=== PATIENT | female | born 1945 ===

== ENCOUNTER 2017-01-26 09:00 | Day surgery (SDC) | payer MEDICARE ==
[2017-01-06 11:21] VITALS: RESP 18; BMI 32.1
[2017-01-26] MEDS ORDERED: Lidocaine 2% MPF (5 ml) Inj ONE (09:33)
[2017-01-26] MEDS ORDERED: Acetylcholine 1% Opth System Pack IO ONE (09:33)
[2017-01-26] MEDS ORDERED: EPINEPHrine 1 mg/ml (1:1000) Inj ONE (09:34)
[2017-01-26] MEDS ORDERED: Chondroitin/Hyaluronate Opth Syringe KIT (0.55 ml-0.5 ml) IO ONE (09:34)
[2017-01-26] MEDS ORDERED: Phenylephrine 2.5% Opht Soln OD ONE ×2 (09:49→10:00)
[2017-01-26] MEDS ORDERED: Tropicamide 1% Opht 150 DROP/15 ML OD ONE (10:00)
[2017-01-26] MEDS ORDERED: Flurbiprofen 0.3% Opht SOLN OD SCH (10:00)
[2017-01-26] MEDS ORDERED: Tropicamide 1% Opht 150 DROP/15 ML OD SCH (10:00)
[2017-01-26] MEDS ORDERED: Flurbiprofen 0.3% Opht SOLN OD ONE (10:00)
[2017-01-26] MEDS ORDERED: Midazolam 2 MG/2 ML VIAL ONE (11:28)
[2017-01-26] MEDS ORDERED: Lactated Ringer's 1,000 ML IV ONE (11:30)
[2017-01-26] MEDS ORDERED: Tetracaine 0.5% Ophth 2 ML BOTTLE OU ONE (11:30)
[2017-01-26] MEDS ORDERED: Lidocaine 1% 20 MG/2 ML PF AMP EP ONE (11:50)
[2017-01-26] MEDS ORDERED: BSS 15 ML SOL IR ONE (11:50)
[2017-01-26] MEDS ORDERED: Maxitrol Opht Susp OD ONE (12:05)
[2017-01-26] MEDS ORDERED: PILOCARPINE 4% OD ONE (12:05)
[2017-01-26 13:56] VITALS: BP 122/67; PULSE 68; TEMP 97.6; O2SAT 100
--- NOTE | 2017-01-27 07:16 | OP ---
SURGEON: OLIVIA JUSTICE MD ANESTHESIOLOGIST: VICKY CID MD ANESTHESIA: LOCAL / IV SEDATION PREOPERATIVE DIAGNOSIS: ENTROPION OF THE RIGHT LOWER LID POSTOPERATIVE DIAGNOSIS: ENTROPION OF THE RIGHT LOWER LID. OPERATION: MODIFIED AHSAN PROCEDURE OF THE RIGHT LOWER LID. 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 PREPARATION AND PROCEDURE: After the patient was prepped and draped in the usual manner for a sterile ophthalmic surgery 2% Xylocaine with Epinephrine was injected at the lateral canthal region of the right lower lid. Mini-curved hemostats were employed to crimp the lower lid in a curvilinear fashion at the right lower lateral canthal region. After crimping of the tissues for approximately two minutes both the outer temporal and medial aspects of crimped tissue were excised in a full thickness fashion of the lower lid. The tarsal plate was re-anastomosed using #5-0 Mersilene suture.The lid margins were re- anastomosed using #6-0 silk suture.The skin surface was closed in an interrupted fashion using #7-0 silk and the skin in an interrupted fashion.This terminated the procedure. Maxitrol ointment was applied to the suture line and inside the lower lid. POSTOPERATIVE CONDITION: The patient was brought to the post anesthesia with stable vital signs. OLIVIA JUSTICE MD [facility]
== END 2017-01-26 14:30 | disposition home or self-care (01) ==
LOC: H.OPSURG 09:00
PROVIDERS: ATTEND Ophthalmology
DX: H25.011 Cortical age-related cataract, right eye (principal); E78.5 Hyperlipidemia, unspecified; E03.9 Hypothyroidism, unspecified; I10 Essential (primary) hypertension
CPT/HCPCS: 67921; J0171; J2250; J3010; J7120; V2632

== ENCOUNTER 2017-02-09 09:16 | Day surgery (SDC) | payer MEDICARE, OTHER ==
[2017-02-09] MEDS ORDERED: Acetylcholine 1% Opth System Pack IO ONE ×3 (09:42→12:42)
[2017-02-09] MEDS ORDERED: Lidocaine 1% 20 MG/2 ML PF AMP ONE (09:43)
[2017-02-09] MEDS ORDERED: EPINEPHrine 1 mg/ml (1:1000) Inj ONE (09:43)
[2017-02-09] MEDS ORDERED: Chondroitin/Hyaluronate Opth Syringe KIT (0.55 ml-0.5 ml) IO ONE ×3 (09:44→12:29)
[2017-02-09] MEDS ORDERED: Povidone Iodine 5% Opht SOLUTION ONE (09:45)
[2017-02-09 09:48] VITALS: BMI 30.9
[2017-02-09] MEDS ORDERED: Phenylephrine 2.5% Opht Soln OD ONE ×2 (09:50→10:00)
[2017-02-09] MEDS ORDERED: Tropicamide 1% Opht 150 DROP/15 ML LEFTEYE SCH (10:00)
[2017-02-09] MEDS ORDERED: Flurbiprofen 0.3% Opht SOLN OS SCH (10:00)
[2017-02-09] MEDS ORDERED: Lactated Ringer's 1,000 ML IV ONE (10:25)
[2017-02-09] MEDS ORDERED: Tropicamide 1% Opht 150 DROP/15 ML LEFTEYE ONE (10:26)
[2017-02-09] MEDS ORDERED: Flurbiprofen 0.3% Opht SOLN OU ONE (10:26)
[2017-02-09] MEDS ORDERED: Tetracaine 0.5% Ophth 2 ML BOTTLE OS ONE ×2 (11:31→12:14)
[2017-02-09] MEDS ORDERED: Lidocaine 1% 20 MG/2 ML PF AMP EP ONE ×3 (11:32→12:27)
[2017-02-09] MEDS ORDERED: Maxitrol Opht Susp OS ONE ×3 (11:32→12:48)
[2017-02-09] MEDS ORDERED: BSS 15 ML SOL IR ONE ×2 (11:33→12:27)
[2017-02-09] MEDS ORDERED: Povidone Iodine 5% Opht SOLUTION OS ONE ×3 (11:33→12:14)
[2017-02-09] MEDS ORDERED: EPINEPHrine 1 mg/ml (1:1000) Inj IV ONE ×2 (11:47→12:29)
[2017-02-09] MEDS ORDERED: Pilocarpine 1% Opht Soln OS ONE ×3 (11:48→12:48)
[2017-02-09] MEDS ORDERED: Midazolam 2 MG/2 ML VIAL ONE (11:51)
[2017-02-09 15:18] VITALS: BP 139/56; PULSE 69; RESP 18; TEMP 98; O2SAT 99
--- NOTE | 2017-02-10 08:25 | OP ---
SURGEON: OLIVIA JUSTICE MD ANESTHESIOLOGIST:KOLBY VARGAS MD / GISELLE XIONG DO ANESTHETIC: IV SEDATION PREOPERATIVE DIAGNOSIS: ENTROPION OF THE LEFT LOWER LID POSTOPERATIVE DIAGNOSIS: ENTROPION OF THE LEFT LOWER LID. OPERATION: MODIFIED AHSAN PROCEDURE OF THE LEFT LOWER LID. 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 PREPARATION AND PROCEDURE: After the patient was prepped and draped in the usual manner for a sterile ophthalmic surgery 2% Xylocaine with Epinephrine was injected at the lateral canthal region of the Left lower lid. Mini-curved hemostats were employed to crimp the lower lid in a curvilinear fashion at the left lower lateral canthal region. After crimping of the tissues for approximately two minutes both the outer temporal and medial aspects of crimped tissue were excised in a full thickness fashion of the lower lid. The tarsal plate was re-anastomosed using #5-0 Mersilene suture. The lid margins were re-anastomosed using #6-0 silk suture. The skin surface was closed in an interrupted fashion using #7-0 silk and the skin in an interrupted fashion.This terminated the procedure. Maxitrol ointment was applied to the suture line and inside the lower lid. POSTOPERATIVE CONDITION: The patient was brought to the Postanesthesia Recovery area with stable vital signs. OLIVIA JUSTICE MD [facility]
== END 2017-02-09 15:31 | disposition home or self-care (01) ==
LOC: H.OPSURG 09:16
PROVIDERS: ATTEND Ophthalmology
DX: H25.012 Cortical age-related cataract, left eye (principal); E78.5 Hyperlipidemia, unspecified; E03.9 Hypothyroidism, unspecified; I10 Essential (primary) hypertension
CPT/HCPCS: 67924; J0171; J2250; J3010; J7120; V2632